=== PATIENT | female | born 1965 | race Caucasian/White ===

== ENCOUNTER → 2018-05-26 14:05 | Outpatient (CLI) | payer BC ==
[2015-08-12 16:35] VITALS: BMI 22.2
[~2018-05-26 14:05] MED LIST: ADDERALL 30 MG30 MG PO; CLARITIN-D1 TAB.SR . PO; CYCLOBENZAPRINE10 MG PO; DESERYL100 MG PO; ELAVIL10 MG PO; ESTRACE 0.5 MG0.5 MG PO; FLUTICASONE PRO16 GM NASAL; HYDROCODONE-APA1 TAB PO; K-TAB10 MEQ PO; METAMUCIL FIB1 WAFER PO; MIRALAX17 GM PO; PREVACID30 MG PO; PROMETRIUM100 MG PO; SYNTHROID50 MCG PO; TOPROL XL25 MG PO; ZOLOFT100 MG PO
== END | disposition home or self-care (01) ==
LOC: D.MRI 14:05
DX: M54.12 Radiculopathy, cervical region (principal)

== ENCOUNTER → 2018-10-14 20:01 | Outpatient (CLI) | payer BC ==
[2015-08-12 16:35] VITALS: BMI 22.2
== END | disposition home or self-care (01) ==
LOC: D.US 10:30 → D.MAMMO 11:30 → D.US 20:01
DX: Z12.31 Encounter for screening mammogram for malignant neoplasm of breast (principal)

== ENCOUNTER → 2018-10-19 13:49 | Outpatient (CLI) | payer BC ==
[2015-08-12 16:35] VITALS: BMI 22.2
== END | disposition home or self-care (01) ==
LOC: D.CT 13:49
DX: J32.9 Chronic sinusitis, unspecified (principal)

== ENCOUNTER → 2019-04-06 10:34 | Outpatient (CLI) | payer BC ==
[2015-08-12 16:35] VITALS: BMI 22.2
== END | disposition home or self-care (01) ==
LOC: D.HCCARDIO 10:34
PROVIDERS: ATTEND Internal Medicine Cardiovascular Disease
DX: I34.0 Nonrheumatic mitral (valve) insufficiency (principal)

== ENCOUNTER 2019-06-24 10:00 | Day surgery (SDC) | payer BC ==
[2019-06-21 11:48] LABS: HEMATOCRIT 41.7 % (36.0-48.0); HEMOGLOBIN 13.9 g/dL (12-16); MCH 30.2 pg (26.0-34.0); MCHC 33.3 g/dL (31.0-37.0); MCV 90.5 fL (80.0-100.0); MEAN PLATELET VOLUME 9.3 fL (7.4-10.4); RBC 4.61 10x6/uL (4.00-5.40); RDW 13.1 % (11.5-14.5); WBC 3.8 10x3/uL (4.8-10.8)
[~2019-06-24] VITALS: Ht 175.3 cm; Wt 68.6 kg
[2019-06-24] VITALS (11 sets, daily range): BP systolic 118–159; BP diastolic 74–109; Ht 175.3 cm; Wt 68.6 kg
[~2019-06-24 10:00] MED LIST changes: +CENTRUM SILVER1 EAC3 PO; +CLARITIN 10 MG10 MG PO; -CLARITIN-D1 TAB.SR . PO; +CYANOCOBAL1000 MCG/4 SC; +ESTRACE1 MG PO; +HYDROCODON-ACE1 EA10 PO; +NEURONTIN 300300 MG PO; +SINGULAIR10 MG PO; +TOPAMAX100 MG PO; -TOPROL XL25 MG PO; +TOPROL XL50 MG PO; +TRAZODONE HCL150 MG PO
--- NOTE | 2019-06-24 17:46 | NUR ---
PATIENT RECEIVED FROM PACU, AWAKE AND ALERT X 4, VSS. BBS CLEAR AND EQUAL RR - 12, CM NSR HR 82, SPO2 - 96% ON RA. SCDS PLACED. INCISION TO LEFT NECK INTACCT, NO SWELLING OR BLEEDING NOTED. RATES PAIN TO BACK OF NECK AT A 10/10, ACHING. PRN MEDS GIVEN PER EMAR.
--- NOTE | 2019-06-24 19:00 | NUR ---
PT ASSESSMENT COMPLETED AT THIS TIME, NO CHANGES NOTED FROM NURSE REPORT, VSS, WILL CONT. TO MONITOR FOR CHANGES
--- NOTE | 2019-06-24 19:47 | NUR ---
PT REQUESTING SOMETHING TO EAT, PT GIVEN A SNACK AT THIS TIME.
--- NOTE | 2019-06-24 21:08 | NUR ---
PT ASSISTED UP TO THE BATHROOM WITH SOFT COLLAR ON AND VOIDED A LARGE AMOUNT OF CLEAR YELLOW URINE, NO DISTRESS NOTED, VSS
--- NOTE | 2019-06-24 23:00 | NUR ---
REASSESMENT COMPLETED AT THIS TIME, NO CHANGES NOTED, VSS, WILL CONT TO MONITOR
[2019-06-25] VITALS (13 sets, daily range): BP systolic 140–165; BP diastolic 84–99
--- NOTE | 2019-06-25 01:06 | NUR ---
PT AWAKE AND REQUESTING SOMETHING FOR PAIN AND CONCERNED ABOUT HER BLOOD SUGAR GETTING TO LOW, PT WAS INFORMED THAT WAS NOT TIME FOR ANY ADDITIONAL PAIN MEDICINE AND THE NURSE WOULD CHECK HER GLUCOSE.
--- NOTE | 2019-06-25 03:00 | NUR ---
PT REASSESSMENT COMPLETED AT THIS TIME, NO CHANGES SEEN, VSS
--- NOTE | 2019-06-25 05:00 | NUR ---
PT I AND O COLLECTED AT THIS TIME, NO CHANGES NOTED, VSS
--- NOTE | 2019-06-25 07:15 | NUR ---
REPORT RECEIVED. PT HAD ACF YESTERDAY BY DR COTO. SHE IS SITTING UP IN BED. INCISION TO LEFT SIDE OF NECK. PT STATES SHE HAS HAD SOME PAIN. TRACHEA MIDLINE. IV TO LEFT HAND WITH D5 1/2 INFUSING AT 50ML/HR. VSS. WILL CONTINUE TO MONITOR.
--- NOTE | 2019-06-25 09:01 | NUR ---
PAIN MEDICATION GIVEN. ROBAXIN GIVEN AROUND 729. PT STATED THAT HAS HELPED SOME. VSS. NO OTHER NEEDS AT THIS TIME. WILL CONTINUE TO MONITOR.
--- NOTE | 2019-06-25 11:15 | NUR ---
PT UP IN CHAIR. VSS. NO COMPLAINTS OR NEEDS AT THIS TIME.
--- NOTE | 2019-06-25 12:23 | NUR ---
DR COTO ROUNDED AND WROTE FOR D/C PRESCRIPTIONS.
--- NOTE | 2019-06-25 13:30 | NUR ---
DISCHARGE INSTRUCTIONS REVIEWED. IV OUT. PT DRESSED. SISTER PICKING UP.
--- NOTE | 2019-07-05 20:19 | OP ---
PATIENT NAME: DINA RUELAS MEDICAL RECORD: [id number] :61 LOCATION:[facility] ADMISSION DATE: SURGEON: GUMARO COTO MD DATE OF OPERATION: 06/24/2019 PREOPERATIVE DIAGNOSES: Osteophyte formation and disc herniation at C5-C6 and C6-C7. POSTOPERATIVE DIAGNOSES: Osteophyte formation and disc herniation at C5-C6 and C6-C7. PROCEDURE: Anterior cervical discectomy and fusion with removal of osteophytes of C5-C6 and C6-C7. SURGEON: Gumaro Coto MD DESCRIPTION OF TECHNIQUE: After induction of general endotracheal anesthesia, the patient was positioned supine on the operating table with interscapular roll. Neck was prepped and draped in usual sterile fashion. Fluoroscopic x-ray and freer localized the C5-C6 interspace. After infiltration of 1:100,000 epinephrine with 1% lidocaine into the subcutaneous skin incision was carried out from the midline to the sternocleidomastoid muscle. Next, the platysma was divided with Bovie cautery. Using blunt and sharp dissection with Metzenbaum scissors, I proceeded in an avascular plane medial to the carotid sheath. The C5-C6 and C6-C7 interspaces were identified with fluoroscopic x-ray and a spinal needle. The longus colli muscles were elevated from bodies of C5, C6, and C7. Osteophytes anteriorly removed with Adson rongeurs. A self-retaining retractor was placed deep to the longus colli muscles. A [place] distracting pin was placed in the bodies of C5, C6, and C7. The C5-C6 and C6-C7 interspaces were incised with #11 blade. Pituitary rongeurs and curettes were used to remove disc material from the disc space and prepare the endplates. Next, at each level, microscope and Midas Merlin drill were used to remove osteophytes posteriorly. The posterior longitudinal ligament was removed with Cloward rongeurs. Following this, the dura was decompressed on both sides. A PEEK interbody cage was placed in the disc space under distraction. Prior to this, it was filled with Lelia bone allograft. Next, a separate anterior cervical plate and screws was used to span the C5-C6 and C6-C7 interspaces. Self-drilling screws were placed through the holes in the plate. Locking cams were tightened down over screw heads. Good position of the hardware was confirmed with fluoroscopic x-ray. Meticulous hemostasis was maintained throughout the wound. Wound was irrigated with copious amounts of Ancef irrigant solution. The platysma and subdermal layer closed with interrupted 3-0 Vicryl suture. The skin was reapproximated with Steri-Strips and benzoin. A sterile dressing was applied to the wound. The patient was awakened in good condition and taken to recovery. All counts were reported as correct. Estimated blood loss was minimal. TRANSINT:[id number] Voice Confirmation ID: [id number] DOCUMENT ID: [id number] OPERATIVE REPORT [id number] DINA RUELAS JOHN MD at 2019 CC: [id number] DICTATION DATE: 06/29/19 1541 EFFICIENCY CLERK: 06/30/19 0026 [facility] 06/25/19 [id number] [place] [address]
== END 2019-06-25 14:30 | disposition home or self-care (01) ==
LOC: OBSVTIME → D.OPS 10:00 → D.PAN 12:00 → OBSVTIME 16:34 → D.CVICU 16:34 → D.OPS 17:29 → D.CVICU 17:30 → OBSVTIME 17:30 → D.CVICU 17:30 → D.OPS 17:30 → D.CVICU 06-25 14:30
PROVIDERS: Anesthesiology; ATTEND Neurological Surgery
DX: M54.12 Radiculopathy, cervical region (principal); E03.9 Hypothyroidism, unspecified; E78.00 Pure hypercholesterolemia, unspecified; I10 Essential (primary) hypertension; K21.9 Gastro-esophageal reflux disease without esophagitis

== ENCOUNTER 2021-02-28 05:05 | Day surgery (SDC) | payer OTHER ==
[2021-02-25 10:44] LABS: BASOPHILS 0.8 % (0-2); HEMATOCRIT 43.9 % (36.0-48.0); HEMOGLOBIN 15.2 g/dL (12-16); LYMPHOCYTES 36.1 % (15-50); MCH 32.2 pg (26.0-34.0); MCHC 34.6 g/dL (31.0-37.0); MCV 93.2 fL (80.0-100.0); MEAN PLATELET VOLUME 7.2 fL (7.4-10.4); MONOCYTES 7.5 % (2-11); NEUTROPHILS 53.6 % (40-80); PLATELET COUNT 197 10x3/uL (130-400); RBC 4.72 10x6/uL (4.00-5.40); RDW 12.4 % (11.5-14.5); WBC 3.7 10x3/uL (4.8-10.8)
[2021-02-25 10:48] LABS: CALC OSMOLALITY 281 mosm/kg (275-300); CALCIUM 9.1 mg/dL (8.5-10.1); CARBON DIOXIDE 27.2 mmol/L (21.0-32.0); CHLORIDE - SERUM 104 mmol/L (98-107); CREATININE - SERUM 0.8 mg/dL (0.6-1.3); GLUCOSE 90 mg/dL (74-106); POTASSIUM - SERUM 4.1 mmol/L (3.5-5.1); SODIUM 141 mmol/L (136-145); UREA NITROGEN 16 mg/dL (7-18); eGFR NON AFRICAN AMERICAN 78 mL/min (90-120)
[2021-02-28] VITALS (14 sets, daily range): BP systolic 113–134; BP diastolic 67–84; Ht 175.3 cm; Wt 68.2 kg
[~2021-02-28] VITALS: Ht 175.3 cm; Wt 68.2 kg
[2021-02-28] MEDS ORDERED: TOPROL XL200 MG PO (06:06)
[2021-02-28] MEDS ORDERED: ALDACTONE100 MG PO (06:07)
--- NOTE | 2021-02-28 20:00 | NUR ---
ALERT RESTING IN BED, C COLLAR IN USE, DENIES PAIN OR NEEDS AT THIS TIME, SEE SHIFT ASSESSMENT, CALL LIGHT IN REACH
[2021-03-01] VITALS: BP 114/69
[2021-03-01 04:00] VITALS: BP 114/67
--- NOTE | 2021-03-01 08:15 | NUR ---
DRESSING TO BACK OF NECK CHANGED. CL IN REACH. NO NEEDS AT THIS TIME. WCTM
[2021-03-01] MEDS ORDERED: HYDROCODON-ACE1 EA10 PO (08:43)
[2021-03-01] MEDS ORDERED: METHOCARBAMOL500 MG PO (08:43)
[2021-03-01] MEDS ORDERED: MEDROL DOSE PACK4 MG PO (08:44)
[2021-03-01 09:41] VITALS: BP 123/75
--- NOTE | 2021-03-01 10:54 | NUR ---
IV THERAPY DC'ED FROM RIGHT FOREARM WITH TIP INTACT. DISCHARGE INSTRUCTIONS GIVEN. PT AND MOTHER SYDNI VERBALIZED UNDERSTANDING. WHEELED TO EXIT.
--- NOTE | 2021-03-04 09:16 | OP ---
PATIENT NAME: DINA RUELAS MEDICAL RECORD: [id number] :61 LOCATION:[facility] ADMISSION DATE: SURGEON: GUMARO COTO MD DATE OF OPERATION: 02/28/2021 PREOPERATIVE DIAGNOSIS: Posterior foraminal stenosis at C4-C5, C5-C6 and C6-C7, right. POSTOPERATIVE DIAGNOSIS: Posterior foraminal stenosis at C4-C5, C5-C6 and C6-C7, right. PROCEDURE: Posterior cervical foraminotomy at C4-C5, C5-C6 and C6-C7, right. SURGEON: Gumaro Coto M.D. DESCRIPTION OF TECHNIQUE: After induction of general endotracheal anesthesia, the patient was placed in Jacobs head pins, rolled prone on chest and hip rolls. The posterior spine was prepped and draped in the usual sterile fashion. Fluoroscopic x-ray and spinal needle localized the C4-C5 interspace on the right side. After infiltration with 1:100,000 epinephrine, 1% lidocaine a skin incision was carried out from the spinous process of C4-C6. The ligamentum nuchae was incised with a Bovie cautery and then using periosteal elevators, the spinous processes and lamina of C4, C5 and C6 and C7 were exposed. The C4-C5 interspace was identified and was confirmed with fluoroscopic x-ray and a [place]ann[place] elevator. A microscope and Midas Merlin were used to perform a medial facetectomy and foraminotomy at C4-C5, C5-C6 and C6-C7 on the right. Hypertrophied ligamentum flavum was removed with Cloward rongeurs. Foraminotomies were carried out further with a 10 mm collateral punch. This relieved a nerve root compression at the C5, C6 and C7 nerve roots. Meticulous hemostasis was maintained throughout the wound. Wound was irrigated with copious amounts of Ancef irrigant solution. The fascia was closed with 2-0 Vicryl suture. The subdermal layer was closed with 3-0 Vicryl suture. The skin was closed with brent. A sterile dressing was applied to the wound. The patient was awakened in good condition and taken to recovery. All counts were reported as correct. Estimated blood loss was minimal. TRANSINT:[id number] Voice Confirmation ID: [id number] DOCUMENT ID: [id number] GUMARO COTO MD at 0916 CC: [id number] DICTATION DATE: 03/04/21 0746 [place] CONSULTANT: 03/04/21 0810 [facility] [place] 03/01/21 [facility] [address] [place] [address]
== END 2021-03-01 10:59 | disposition home or self-care (01) ==
LOC: D.OPS 05:05 → D.MS 10:13 → D.OPS 03-01 10:59
PROVIDERS: Anesthesiology; ATTEND Neurological Surgery
DX: M48.02 Spinal stenosis, cervical region (principal); M54.12 Radiculopathy, cervical region; Z20.822 Contact with and (suspected) exposure to COVID-19; I10 Essential (primary) hypertension